=== PATIENT | female | born 1990 | race Caucasian/White ===

== ENCOUNTER 2017-05-10 20:40 | Emergency (ER) | END 2017-05-11 00:38 | disposition left against medical advice (07) ==

== ENCOUNTER 2017-06-05 15:54 | Emergency (ER) | END 2017-06-05 19:40 | disposition home or self-care (01) ==

== ENCOUNTER 2017-06-21 20:41 | Emergency (ER) | END 2017-06-22 01:02 | disposition left against medical advice (07) ==

== ENCOUNTER 2017-06-22 10:13 | Emergency (ER) | END 2017-06-22 13:33 | disposition home or self-care (01) ==

== ENCOUNTER 2017-07-21 14:46 | Outpatient (CLI) | END 2017-07-21 19:33 | disposition home or self-care (01) ==

== ENCOUNTER 2017-10-05 17:19 | Outpatient (CLI) | END 2017-10-06 00:52 | disposition home or self-care (01) ==

== ENCOUNTER 2017-10-27 00:12 | Outpatient (CLI) | END 2017-10-27 03:13 | disposition home or self-care (01) ==

== ENCOUNTER 2017-11-01 15:54 | Outpatient (CLI) | END 2017-11-01 21:00 | disposition home or self-care (01) ==

== ENCOUNTER 2017-11-02 20:12 | Outpatient (CLI) | END 2017-11-02 22:14 | disposition home or self-care (01) ==

== ENCOUNTER 2017-11-04 10:00 | Inpatient (IN) | END 2017-11-06 18:15 | disposition home or self-care (01) | DRG 775 ==